=== PATIENT | male | born 1935 | race Caucasian/White ===

== ENCOUNTER 2021-09-19 08:17 | Outpatient (CLI) | payer MEDICARE, SELFPAY | END 2021-09-19 08:18 | disposition home or self-care (01) | LOC: CSHWCC 08:17 | PROVIDERS: ATTEND Nurse Practitioner Family | DX: L97.429 Non-pressure chronic ulcer of left heel and midfoot with unspecified severity (principal); L97.419 Non-pressure chronic ulcer of right heel and midfoot with unspecified severity; R60.0 Localized edema | CPT/HCPCS: 11042; 97139; G0463; 99204 ==

== ENCOUNTER 2021-09-26 09:45 | Outpatient (CLI) | payer MEDICARE | END 2021-09-26 09:46 | disposition home or self-care (01) | LOC: CSHWCC 09:45 | PROVIDERS: ATTEND Nurse Practitioner Family | DX: L97.419 Non-pressure chronic ulcer of right heel and midfoot with unspecified severity (principal) | CPT/HCPCS: 29581 ==

== ENCOUNTER 2021-09-28 08:13 | Outpatient (CLI) | payer MEDICARE | END 2021-09-28 08:14 | disposition home or self-care (01) | LOC: CSHWCC 08:13 | PROVIDERS: ATTEND Nurse Practitioner Family | DX: R60.0 Localized edema (principal) | CPT/HCPCS: 97139; G0463; 99213 ==

== ENCOUNTER 2021-10-01 10:57 | Outpatient (CLI) | payer MEDICARE | END 2021-10-01 10:58 | disposition home or self-care (01) | LOC: CSHWCC 10:57 | PROVIDERS: ATTEND Nurse Practitioner Family | DX: R60.0 Localized edema (principal) | CPT/HCPCS: 97139; G0463; 99213 ==

== ENCOUNTER 2021-10-05 10:18 | Outpatient (CLI) | payer MEDICARE | END 2021-10-05 10:19 | disposition home or self-care (01) | LOC: CSHWCC 10:18 | PROVIDERS: ATTEND Nurse Practitioner Family | DX: R60.0 Localized edema (principal) | CPT/HCPCS: 97139; G0463; 99212 ==

== ENCOUNTER 2021-10-11 15:28 | Outpatient (CLI) | payer MEDICARE | END 2021-10-11 15:29 | disposition home or self-care (01) | LOC: CSHWCC 15:28 | PROVIDERS: ATTEND Nurse Practitioner Family | DX: R60.0 Localized edema (principal) ==